=== PATIENT | female | born 1960 | race Two or more races ===

== ENCOUNTER 2018-02-06 10:46 | Outpatient (CLI) | payer OTHER | END 2018-02-06 11:05 | disposition home or self-care (01) | LOC: TOM 10:46 | DX: C64.1 Malignant neoplasm of right kidney, except renal pelvis (principal) ==

== ENCOUNTER 2018-02-06 10:51 | Outpatient (CLI) | payer OTHER | END 2018-02-06 11:04 | disposition home or self-care (01) | LOC: RAD 10:51 | DX: C54.1 Malignant neoplasm of endometrium (principal) ==

== ENCOUNTER → 2018-04-11 | Outpatient (CLI) | payer OTHER | END | disposition home or self-care (01) | LOC: RAD 09:38 | DX: C54.1 Malignant neoplasm of endometrium (principal); Z01.818 Encounter for other preprocedural examination; D64.9 Anemia, unspecified; N39.0 Urinary tract infection, site not specified; R79.89 Other specified abnormal findings of blood chemistry ==

== ENCOUNTER → 2020-07-29 14:42 | Outpatient (CLI) | payer OTHER | END | disposition home or self-care (01) | LOC: LAB 14:42 | PROVIDERS: ATTEND Radiology Diagnostic Radiology | DX: N20.0 Calculus of kidney (principal) ==

== ENCOUNTER 2020-07-30 10:22 | Outpatient (CLI) | payer OTHER | END 2020-07-30 10:25 | disposition home or self-care (01) | LOC: TOM 10:22 | PROVIDERS: ATTEND Obstetrics & Gynecology Gynecologic Oncology | DX: C54.1 Malignant neoplasm of endometrium (principal) ==

== ENCOUNTER 2022-03-09 11:36 | Outpatient (CLI) | payer OTHER | END 2022-03-09 11:46 | disposition home or self-care (01) | LOC: LAB 11:36 | PROVIDERS: ATTEND Radiology Diagnostic Radiology | DX: C54.1 Malignant neoplasm of endometrium (principal) ==

== ENCOUNTER 2022-03-17 11:03 | Outpatient (CLI) | payer OTHER | END 2022-03-17 11:15 | disposition home or self-care (01) | LOC: TOM 11:03 | PROVIDERS: ATTEND Obstetrics & Gynecology Gynecologic Oncology | DX: C54.1 Malignant neoplasm of endometrium (principal) ==